=== PATIENT | male | born 1960 | race Caucasian/White ===

== ENCOUNTER 2022-03-18 08:33 | Day surgery (SDC) | payer BC, SELFPAY ==
[2022-03-13 08:54] VITALS: BMI 27.6
--- NOTE | 2022-03-15 13:15 | HO.ANESPROP2 ---
Documented by User: Katt Castaneda NP 03/15/22 13:15 HPI - Anesthesia Eval Consult details Narrative: 62yo M for Colonoscopy [facility] Past Medical History Medical History (Updated 03/13/22 @ 08:56 by Nohelia Shanks RN) Elevated cholesterol GERD (gastroesophageal reflux disease) Hiatal hernia HTN (hypertension) Renal calculi Surgical History Surgical History (Updated 03/13/22 @ 08:56 by Nohelia Shanks RN) H/O colonoscopy History of esophagogastroduodenoscopy (EGD) Social History Social History Advance Directives: No Advance Directives Information Provided: Yes Meds Allergies Allergy/AdvReac Type Severity Reaction Status Date / Time Sulfa (Sulfonamide Allergy Intermediate RASH Unverified 03/02/20 16:36 Antibiotics) [SULFA (SULFONAMIDE ANTIBIOTICS)] Home Medications Medication Instructions Recorded Confirmed Last Taken Type lisinopril 10 mg tablet 10 mg PO DAILY 03/13/22 03/13/22 Unknown History omeprazole magnesium 20 mg 20 mg PO Q2D 03/13/22 03/13/22 Unknown History tablet,delayed release (Prilosec OTC) simvastatin 40 mg tablet 40 mg PO BEDTIME 03/13/22 03/13/22 Unknown History Exam Exam Date and Time: March 15, 2022 1315 Height,Weight and Vital Signs: Height 5 ft 8.5 in Weight 83.461 kg Assessment and Plan Assessment Anesthesia Assessment: Chart Reviewed Documented by User: Mono Abreu MD 03/18/22 08:47 [facility] Past Medical History Medical History (Updated 03/13/22 @ 08:56 by Nohelia Shanks RN) Elevated cholesterol GERD (gastroesophageal reflux disease) Hiatal hernia HTN (hypertension) Renal calculi Family History Family history of problems with anesthesia: No Surgical History Surgical History (Updated 03/13/22 @ 08:56 by Nohelia Shanks RN) H/O colonoscopy History of esophagogastroduodenoscopy (EGD) History of Problems with Anesthesia: No Social History Social History Advance Directives: No Advance Directives Information Provided: Yes Meds Allergies Allergy/AdvReac Type Severity Reaction Status Date / Time Sulfa (Sulfonamide Allergy Intermediate RASH Unverified 03/02/20 16:36 Antibiotics) [SULFA (SULFONAMIDE ANTIBIOTICS)] Home Medications Medication Instructions Recorded Confirmed Last Taken Type lisinopril 10 mg tablet 10 mg PO DAILY 03/13/22 03/13/22 Unknown History omeprazole magnesium 20 mg 20 mg PO Q2D 03/13/22 03/13/22 Unknown History tablet,delayed release (Prilosec OTC) simvastatin 40 mg tablet 40 mg PO BEDTIME 03/13/22 03/13/22 Unknown History Exam Airway Mallampati Class: II TM Dist: >3cm Neck ROM: Full Assessment and Plan Assessment Anesthesia Assessment: Anesthesia Plan Discussed Final Anesthetic Review Family History of Problems with Anesthesia: No History of Problems with Anesthesia: No NPO: Yes ASA Class: II Final Preanesthetic Review: No Changes in Pt Med Stat, Meds/Allgs Chart Reviewed, Consent Obtained/Reviewed and Anes Risks/Benef Reviewed Patient Risk: Low Procedure Risk: Low Anesthetic Plan Anesthetic Plan: MAC: Disposition: Standard PACU
[2022-03-18 08:45] VITALS: BP 143/86; PULSE 100; RESP 16; TEMP 36.1; O2SAT 97; BMI 26.9
[2022-03-18] MEDS: Lactated Ringers 1,000 ML 100 ML IVCONT (09:02)
--- NOTE | 2022-03-18 10:43 | P.BOP_ITS ---
Brief Operative Note Date of Service: 03/18/22 Pre-op diagnosis: Screening Post-op diagnosis: other (Polyps) Procedure: Colonoscopy to the cecum and TI with bx/removal of polyp and cold snare polypectomy x 2---all in transverse colon Surgeon: Rodolfo Farris Anesthesia: MAC Was an Order Builder Loader used for this Procedure?: No Estimated blood loss (mL): 2.0 Pathology: other (A. Transverse colon polyps(3)) Condition: stable Disposition: PACU
[2022-03-18 10:46] VITALS: BP 106/62; PULSE 78; RESP 16; TEMP 36.4; O2SAT 95
[2022-03-18 11:01] VITALS: BP 113/72; PULSE 73; RESP 16; TEMP 36.4; O2SAT 96
--- NOTE | 2022-03-18 11:26 | OP_ITS ---
SURGEON: Rodolfo Farris MD INDICATIONS: The patient presents for followup of personal history of tubular adenoma of the colon, and colorectal cancer screening. Full consent has been obtained from him for this, including risks of bleeding and perforation. PREOPERATIVE DIAGNOSIS: Colorectal cancer screening and personal history of tubular adenoma of the colon. POSTOPERATIVE DIAGNOSIS: PROCEDURE PERFORMED: Colonoscopy to the cecum and terminal ileum with biopsy and removal of polyp, and cold snare polypectomy x2. ESTIMATED BLOOD LOSS: COMPLICATIONS: ANESTHESIA: Monitored anesthesia care. ASSISTANTS: SPECIMENS: POSTOPERATIVE DIAGNOSES: Colorectal cancer screening and personal history of tubular adenoma of the colon, colon polyps, diverticulosis, and internal hemorrhoids. DESCRIPTION OF PROCEDURE: The patient was placed in the left lateral decubitus position. The digital rectal exam revealed no abnormalities. The Olympus video pediatric colonoscope was entered into the rectum and advanced easily to the cecum. Once in the cecum, I did identify a normal-appearing cecal pouch with appendiceal orifice and a normal-appearing ileocecal valve. The terminal ileum was cannulated and appeared normal. The scope was withdrawn back in the colon. The entire cecum and ileocecal valve appeared normal. The scope was slowly withdrawn assessing all mucosal surfaces carefully. Preparation was excellent. In the transverse colon were 3 polyps. One was approximately 4 mm in diameter and was biopsied and completely removed with a cold biopsy forceps. The other 2 polyps were approximately 5 or 6 mm and were each removed by cold snare polypectomy and recovered by suction. All the polyps were placed in the same container. I did not visualize any other polyps, colitis, nor angiodysplasia. There was a mild amount of sigmoid diverticulosis. In the rectum, scope was retroflexed visualizing internal hemorrhoids, but no other pathology. The rectal mucosa appeared normal. The scope was straightened and withdrawn from the patient. He tolerated the procedure well and was returned to the recovery area in stable condition. IMPRESSION: 1. Colon polyps. 2. Diverticulosis. 3. Internal hemorrhoids. PLAN: The results of the pathology will be checked. Given his previous history, I would recommend a repeat colonoscopy in 3 years for further screening and surveillance. He was advised not to use any aspirin or NSAIDs for 1 week. MD LUCY Grover/SANDRA / [id number]
== END 2022-03-18 11:28 | disposition home or self-care (01) ==
PROVIDERS: PCP Internal Medicine Medical Oncology; Visit Provider Internal Medicine
PROC: 0DJD8ZZ Inspection of Lower Intestinal Tract, Via Natural or Artificial Opening Endoscopic (ICD-10-PCS; CPT 45378; principal; 2022-03-18 09:40)
DX: Z12.11 Encounter for screening for malignant neoplasm of colon (principal); Z86.010 Personal history of colon polyps; D12.3 Benign neoplasm of transverse colon; K57.30 Diverticulosis of large intestine without perforation or abscess without bleeding; K64.8 Other hemorrhoids; K21.9 Gastro-esophageal reflux disease without esophagitis; I10 Essential (primary) hypertension; E78.5 Hyperlipidemia, unspecified; Z79.899 Other long term (current) drug therapy; Z88.2 Allergy status to sulfonamides; Z87.442 Personal history of urinary calculi
CPT/HCPCS: 45385; 45380; 88305

== ENCOUNTER 2023-11-25 16:12 | Outpatient (REF) | payer BC, SELFPAY ==
--- NOTE | ~2023-11-25 | XR_ITS ---
EXAMINATION: XR ANKLE, RIGHT XR FOOT, RIGHT CLINICAL INFORMATION: Pain status-post injury a few days prior. COMPARISON: None available. TECHNIQUE: AP, lateral, and mortise views of the right ankle. AP, lateral, and oblique views of the right foot. FINDINGS: No fracture. Alignment is anatomic. No erosions. Joint spaces are maintained. Soft tissues are normal. XR/XR foot RT min 3V IMPRESSION: Normal right ankle.
--- NOTE | ~2023-11-25 | XR_ITS ---
EXAMINATION: XR ANKLE, RIGHT XR FOOT, RIGHT CLINICAL INFORMATION: Pain status-post injury a few days prior. COMPARISON: None available. TECHNIQUE: AP, lateral, and mortise views of the right ankle. AP, lateral, and oblique views of the right foot. FINDINGS: No fracture. Alignment is anatomic. No erosions. Joint spaces are maintained. Soft tissues are normal. XR/XR ankle RT 2V IMPRESSION: Normal right ankle.
== END 2023-11-25 16:13 | disposition home or self-care (01) ==
LOC: HO.XRAY 16:12
PROVIDERS: PCP Internal Medicine Medical Oncology; Visit Provider Internal Medicine Medical Oncology
DX: M25.561 Pain in right knee (principal); M25.571 Pain in right ankle and joints of right foot
CPT/HCPCS: 73600; 73630